=== PATIENT | female | born 1945 | race Caucasian/White ===

== ENCOUNTER 2022-07-13 01:32 | Inpatient (IN) | payer OTHER, MEDICAID ==
[~2022-07-13] VITALS: Ht 154.9 cm; Wt 70.3 kg
[2022-07-13] MEDS ORDERED: SODIUM CHLORIDE 0.9% 1,000 ML IV ONE (02:15)
[2022-07-13 03:24] LABS: BASOPHILS % 0.7 % (0.0-2.0); EOSINOPHILS % 0.2 % (0.0-5.0); HEMATOCRIT. 42.5 % (36.0-48.0); HEMOGLOBIN. 14.6 g/dL (12.0-16.0); MEAN CORPUSCULAR HEMOGLOBIN 32.8 pg (28.0-32.0); MEAN CORPUSCULAR VOLUME 95.7 fL (81.0-99.0); MEAN PLATELET VOLUME 7.6 fl (7.4-10.4); MONOCYTES % 12.8 % (2.0-8.0); NEUTROPHILS % 58.3 % (40.0-76.0); PLATELET 183 x1000/uL (130-400); RED BLOOD CELL COUNT 4.44 mill/uL (4.2-5.4); RED CELL DISTRIBUTION WIDTH 12.8 % (11.6-14.6)
[2022-07-13 04:01] LABS: CHLORIDE 96 mEq/L (98-107)
[2022-07-13] MEDS ORDERED: POTASSIUM CHLORIDE 20MEQ TABLET SR PO NR (06:15)
[2022-07-13] MEDS ORDERED: ZOLPIDEM TARTRATE 5MG TABLET PO PRN (06:15)
[2022-07-13] MEDS ORDERED: NITROGLYCERIN 0.4MG TABLET SL SL PRN (06:15)
[2022-07-13] MEDS ORDERED: KETOROLAC 15MG/ML VIAL IV PRN (06:15)
[2022-07-13] MEDS ORDERED: MAGNESIUM/ALUMINUM HYDROXIDE/SIMETHICONE 30ML UDC PO PRN (06:15)
[2022-07-13] MEDS ORDERED: ACETAMINOPHEN 325MG TABLET PO PRN ×2 (06:15)
[2022-07-13] MEDS ORDERED: IPRATROPIUM/ALBUTEROL 0.5-3(2.5)MG/3ML NEB NEB PRN (06:15)
[2022-07-13] MEDS ORDERED: CLONIDINE 0.1MG TABLET PO PRN (06:15)
[2022-07-13] MEDS ORDERED: ONDANSETRON HCL 4MG/2ML INJ IV PRN (06:15)
[2022-07-13] MEDS ORDERED: KCL 20MEQ/100ML PREMIX 100 ML IV NR (06:15)
[2022-07-13] MEDS ORDERED: DOCUSATE SODIUM 100MG CAPSULE PO PRN (06:15)
[2022-07-13] MEDS ORDERED: SODIUM CHLORIDE 0.9% 1000ML BAG (SEPSIS BOLUS) IV ONE (06:15)
[2022-07-13] MEDS ORDERED: GUAIFENESIN 200MG/10ML SUGAR FREE UDC PO PRN (06:15)
[2022-07-13 08:33] LABS: ETHANOL BLOOD < 10 mg/dL; HDL CHOLESTEROL 56 mg/dL (40-59); LDL CHOLESTEROL 84 mg/dL (5-100); T4 FREE 1.14 ng/dL (0.76-1.46); TOTAL IRON BINDING CAPACITY 279 ug/dL (250-450)
[2022-07-13 12:18] VITALS: BP 127/80
[2022-07-13] MEDS: ZINC SULFATE 220 MG ( 50 ) CAPSULE PO SCH (12:50)
[2022-07-13] MEDS: ENOXAPARIN 40MG/0.4ML SYR SUBCUT SCH (12:50)
[2022-07-13] MEDS: ASCORBIC ACID 500 MG TABLET PO SCH ×2 (12:50→21:24)
[2022-07-13] MEDS: ASPIRIN 325MG EC TABLET PO SCH (12:54)
[2022-07-13] MEDS: FAMOTIDINE 20MG TABLET PO SCH (12:54)
[2022-07-13 13:07] LABS: FOLIC ACID (FOLATE) SERUM >20 ng/mL ng/mL (>5.38); VITAMIN B12 SERUM 591 pg/mL (211-911)
[2022-07-13 13:35] VITALS: BP 127/80
[2022-07-13] MEDS ORDERED: HYDR25TA PO (13:58)
[2022-07-13] MEDS ORDERED: BENA40TA91 PO (13:58)
[2022-07-13] MEDS ORDERED: METF-414 PO (13:58)
[2022-07-13] MEDS ORDERED: SIMV-46 PO (13:58)
[2022-07-13] MEDS ORDERED: OMEP20CA14 PO (13:58)
[2022-07-13 16:00] VITALS: BP 134/73
[2022-07-13] MEDS ORDERED: DEXTROSE 50% WATER 50ML SYRINGE IV PRN (16:00)
[2022-07-13] MEDS: INSULIN LISPRO 100 UNITS/ML SUBCUT SCH ×2 (16:40→21:00)
[2022-07-13] MEDS: BLOOD SUGAR DIAGNOSTIC STRIP TEST SCH ×2 (16:40→21:00)
[2022-07-13] MEDS: CEFTRIAXONE 1,000 MG in DEXTROSE 5% WATER 50 ML IV SCH (16:53)
[2022-07-13 17:05] LABS: CREATINE KINASE 65 IU/L (26-192); CREATINE KINASE MB FRACTION < 1.0 ng/mL (0.5-3.6)
[2022-07-13] MEDS: AZITHROMYCIN 500 MG in DEXT 5% WATER 250 ML IV SCH (17:19)
[2022-07-13 20:00] VITALS: BP 117/76
[2022-07-13 22:16] LABS: CLARITY URINE CLEAR (CLEAR); COLOR URINE YELLOW (YELLOW); KETONES URINE NEGATIVE (NEGATIVE); LEUKOCYTE ESTERASE URINE TRACE (NEGATIVE); NITRITE URINE NEGATIVE (NEGATIVE); OCCULT BLOOD URINE NEGATIVE (NEGATIVE); PH URINE 7.5 (4.5-8.0); PROTEIN URINE NEGATIVE (NEGATIVE); SPECIFIC GRAVITY URINE 1.007 (1.005-1.030)
[2022-07-13 23:19] LABS: *AMPHETAMINES SCREEN URINE NEGATIVE (NEGATIVE); *BARBITURATES SCREEN URINE NEGATIVE (NEGATIVE); *BENZODIAZEPINES SCREEN URINE NEGATIVE (NEGATIVE); *COCAINE SCREEN URINE NEGATIVE (NEGATIVE); CANNABINOID URINE SCREEN NEGATIVE (NEGATIVE); METHADONE URINE SCREEN NEGATIVE (NEGATIVE); OPIATES URINE SCREEN NEGATIVE (NEGATIVE); PHENCYCLIDINE URINE SCREEN NEGATIVE (NEGATIVE)
[2022-07-14] VITALS: BP 122/71
[2022-07-14 00:43] LABS: CREATINE KINASE 69 IU/L (26-192); CREATINE KINASE MB FRACTION < 1.0 ng/mL (0.5-3.6)
[2022-07-14 04:00] VITALS: BP 114/65
[2022-07-14] MEDS: BLOOD SUGAR DIAGNOSTIC STRIP TEST SCH ×4 (06:31→20:24)
[2022-07-14] MEDS: INSULIN LISPRO 100 UNITS/ML SUBCUT SCH ×4 (06:32→20:24)
[2022-07-14 08:00] VITALS: BP 134/76
[2022-07-14] MEDS: ASCORBIC ACID 500 MG TABLET PO SCH ×2 (09:04→20:20)
[2022-07-14] MEDS: FAMOTIDINE 20MG TABLET PO SCH (09:04)
[2022-07-14] MEDS: ZINC SULFATE 220 MG ( 50 ) CAPSULE PO SCH (09:04)
[2022-07-14] MEDS: ASPIRIN 325MG EC TABLET PO SCH (09:06)
[2022-07-14] MEDS: ENOXAPARIN 40MG/0.4ML SYR SUBCUT SCH (09:09)
[2022-07-14] MEDS: BUTALBITAL/ACETAMINOPHEN/CAFFEINE 50/325/40MG TABLET PO PRN (11:27)
[2022-07-14 12:00] VITALS: BP 140/63
[2022-07-14 12:45] LABS: BASOPHILS % 0.4 % (0.0-2.0); EOSINOPHILS % 0.1 % (0.0-5.0); HEMATOCRIT. 39.9 % (36.0-48.0); HEMOGLOBIN. 13.7 g/dL (12.0-16.0); LYMPHOCYTES % 36.8 % (20.0-50.0); MEAN CORPUSCULAR HEMOGLOBIN 33.1 pg (28.0-32.0); MEAN CORPUSCULAR VOLUME 96.3 fL (81.0-99.0); MEAN PLATELET VOLUME 7.9 fl (7.4-10.4); MONOCYTES % 10.7 % (2.0-8.0); PLATELET 183 x1000/uL (130-400); RED BLOOD CELL COUNT 4.14 mill/uL (4.2-5.4); RED CELL DISTRIBUTION WIDTH 12.5 % (11.6-14.6)
[2022-07-14 14:39] LABS: CHLORIDE 103 mEq/L (98-107)
[2022-07-14 14:47] LABS: PHOSPHORUS 1.9 mg/dL (2.5-4.9)
[2022-07-14 16:00] VITALS: BP 122/63
[2022-07-14] MEDS: CEFTRIAXONE 1,000 MG in DEXTROSE 5% WATER 50 ML IV SCH (17:21)
[2022-07-14] MEDS: AZITHROMYCIN 500 MG in DEXT 5% WATER 250 ML IV SCH (18:54)
[2022-07-14] MEDS ORDERED: POTASSIUM CHLORIDE 20MEQ/PACKET PO NR (19:15)
[2022-07-14 20:00] VITALS: BP 136/76
[2022-07-14] MEDS ORDERED: POTASSIUM PHOS,M-BASIC-D-BASIC 20 MMOL in DEXT 5% WATER 243.3333 ML IV NR (20:30)
[2022-07-15 00:05] VITALS: BP 119/64
[2022-07-15 04:00] VITALS: BP 132/78
[2022-07-15] MEDS: INSULIN LISPRO 100 UNITS/ML SUBCUT SCH ×4 (05:33→20:42)
[2022-07-15] MEDS: BLOOD SUGAR DIAGNOSTIC STRIP TEST SCH ×4 (05:33→20:45)
[2022-07-15 07:45] LABS: BASOPHILS % 0.4 % (0.0-2.0); EOSINOPHILS % 0.3 % (0.0-5.0); HEMATOCRIT. 37.6 % (36.0-48.0); HEMOGLOBIN. 13.3 g/dL (12.0-16.0); LYMPHOCYTES % 51.7 % (20.0-50.0); MEAN CORPUSCULAR HEMOGLOBIN 33.5 pg (28.0-32.0); MEAN CORPUSCULAR VOLUME 94.9 fL (81.0-99.0); MEAN PLATELET VOLUME 7.5 fl (7.4-10.4); MONOCYTES % 12.2 % (2.0-8.0); NEUTROPHILS % 35.4 % (40.0-76.0); PLATELET 206 x1000/uL (130-400); RED BLOOD CELL COUNT 3.96 mill/uL (4.2-5.4); RED CELL DISTRIBUTION WIDTH 13.2 % (11.6-14.6)
[2022-07-15 08:00] VITALS: BP 124/75
[2022-07-15 08:02] LABS: CHLORIDE 105 mEq/L (98-107)
[2022-07-15 08:09] LABS: PHOSPHORUS 2.8 mg/dL (2.5-4.9)
[2022-07-15] MEDS: ZINC SULFATE 220 MG ( 50 ) CAPSULE PO SCH (08:13)
[2022-07-15] MEDS: ASPIRIN 325MG EC TABLET PO SCH (08:13)
[2022-07-15] MEDS: FAMOTIDINE 20MG TABLET PO SCH (08:13)
[2022-07-15] MEDS: ENOXAPARIN 40MG/0.4ML SYR SUBCUT SCH (08:13)
[2022-07-15] MEDS: ASCORBIC ACID 500 MG TABLET PO SCH ×2 (08:14→20:42)
[2022-07-15 12:00] VITALS: BP 139/77
[2022-07-15] MEDS: BUTALBITAL/ACETAMINOPHEN/CAFFEINE 50/325/40MG TABLET PO PRN ×2 (13:43→17:53)
[2022-07-15 16:00] VITALS: BP 133/86
[2022-07-15] MEDS: AZITHROMYCIN 500 MG in DEXT 5% WATER 250 ML IV SCH (16:57)
[2022-07-15] MEDS: CEFTRIAXONE 1,000 MG in DEXTROSE 5% WATER 50 ML IV SCH (16:57)
[2022-07-15] MEDS ORDERED: POTASSIUM CHLORIDE 20MEQ/PACKET PO NR (18:00)
[2022-07-15 20:00] VITALS: BP 129/81
[2022-07-16 00:23] VITALS: BP 131/69
[2022-07-16 04:00] VITALS: BP 120/76
[2022-07-16] MEDS: BUTALBITAL/ACETAMINOPHEN/CAFFEINE 50/325/40MG TABLET PO PRN (06:02)
[2022-07-16] MEDS: BLOOD SUGAR DIAGNOSTIC STRIP TEST SCH ×2 (07:40→12:40)
[2022-07-16 08:00] VITALS: BP 138/88
[2022-07-16] MEDS: INSULIN LISPRO 100 UNITS/ML SUBCUT SCH ×2 (08:10→13:10)
[2022-07-16] MEDS: FAMOTIDINE 20MG TABLET PO SCH (08:40)
[2022-07-16] MEDS: ZINC SULFATE 220 MG ( 50 ) CAPSULE PO SCH (08:40)
[2022-07-16] MEDS: ASCORBIC ACID 500 MG TABLET PO SCH (08:40)
[2022-07-16] MEDS: ENOXAPARIN 40MG/0.4ML SYR SUBCUT SCH (08:41)
[2022-07-16] MEDS: ASPIRIN 325MG EC TABLET PO SCH (08:42)
[2022-07-16] MEDS: LACTULOSE 20G/30ML UDC PO SCH ×2 (10:36→13:52)
[2022-07-16 13:38] VITALS: BP 121/73
[2022-07-16] MEDS ORDERED: BUTA1CAP45 MT (13:54)
== END 2022-07-16 14:36 | disposition home or self-care (01) | DRG 872 ==
LOC: ER 01:32 → 7WST 04:57 → EDBD 04:57 → ENRESERV 09:15 → MICUSO 11:10 → 7WST 12:41
PROVIDERS: ADMIT Internal Medicine; ATTEND Internal Medicine
DX: A41.9 Sepsis, unspecified organism (principal); E87.1 Hypo-osmolality and hyponatremia; E87.6 Hypokalemia; I10 Essential (primary) hypertension; Z20.822 Contact with and (suspected) exposure to COVID-19; E11.9 Type 2 diabetes mellitus without complications; E66.9 Obesity, unspecified; Z79.899 Other long term (current) drug therapy; Z68.29 Body mass index [BMI] 29.0-29.9, adult; R55 Syncope and collapse
CPT/HCPCS: 36415; 70551; 71045; 80048; 80053; 80061; 80305; 80320; 81003; 82550; 82553; 82607; 82746; 82962; 83036; 83540; 83550; 83605; 83735; 84100; 84145; 84439; 84443; 84484; 85025; 87426; 93005; 93306; 93970; 97162; 97166; 99285; J0456; J0696; J1650; J1885; J2405; J3480; J3490; J7030; J7060; G0480